=== PATIENT | male | born 1950 | race Caucasian/White ===

== ENCOUNTER 2018-04-26 13:27 | Inpatient (IN) | payer MEDICARE ==
[~2018-04-26] VITALS: Ht 172.7 cm; Wt 78.7 kg
[~2018-04-26 13:27] MED LIST: GLUCOVANCE PO; Z.0.RAMIPRIL5 MG PO
--- NOTE | 2018-04-26 14:46 | Diagnostic Imaging Report ---
PROCEDURE:FOOT COMPLETE BILATERAL INDICATION:Diabetic ulcer COMPARISON:Right foot radiographs from 05/18/2017. MRI of the left foot from 04/09/2012 FINDINGS: 3 views each of the right and left feet (AP, lateral, and oblique). RIGHT FOOT: There has been a transmetatarsal amputation through the right first digit. Amputation of the second digit at the MTP joint. There are new destructive changes of the distal phalanx of the fourth digit. Degenerative changes of the midfoot, unchanged Small calcaneal heel spur and Achilles tendon enthesophyte. LEFT FOOT: There has been amputation of the first digit. No radiographic evidence of osteomyelitis Deformity of the second and third metatarsals is likely related to remote trauma. Mild degenerative changes at the midfoot. Small calcaneal heel spur and Achilles tendon enthesophyte. CONCLUSION: Findings are suspicious for osteomyelitis of the distal phalanx of the right fourth digit. Recommend contrast enhanced MRI of the right forefoot for further evaluation. No radiographic evidence of osteomyelitis in the left foot. Dictated by: Darin Ramirez M.D. on 04/26/2018 at 14:51 Electronically approved by: Darin Ramirez M.D. on 04/26/2018 at 14:51
[2018-04-26 16:53] LABS: BASOPHILS # (AUTO) 0.1 (0.0-0.1); BASOPHILS % 0.8 % (0.0-1.0); EOSINOPHILS # (AUTO) 0.3 (0.0-0.4); EOSINOPHILS % 2.9 % (0.0-6.0); HEMATOCRIT 35.4 % (38.2-49.6); HEMOGLOBIN 12.6 g/dL (14.0-18.0); LYMPHOCYTES # (AUTO) 1.9 (1.0-3.2); LYMPHOCYTES % 20.1 % (18.0-39.1); MEAN CORPUSCULAR HEMOGLOBIN 32.1 pg (28-32); MEAN CORPUSCULAR HGB CONC 35.6 g/dL (31-35); MEAN CORPUSCULAR VOLUME 90.3 fL (81-99); MONOCYTES # (AUTO) 0.8 (0.2-0.8); MONOCYTES % 8.1 % (4.4-11.3); NEUTROPHILS # (AUTO) 6.4 (2.1-6.9); NEUTROPHILS % 67.7 % (38.7-80.0); PLATELET COUNT 264 x10e3/uL (140-360); RED BLOOD COUNT 3.92 x10e6/uL (4.3-5.7); RED CELL DISTRIBUTION WIDTH 11.9 % (11.7-14.4)
[2018-04-26 16:57] LABS: INR 1.02; PROTHROMBIN TIME 12.6 seconds (11.9-14.5)
[2018-04-26] MEDS ORDERED: RAMIPRIL5 MG PO (16:57)
[2018-04-26] MEDS ORDERED: GLYBURIDE-METF1 EAC1 PO (16:57)
[2018-04-26 17:05] LABS: ALBUMIN 3.4 g/dL (3.5-5.0); ALBUMIN/GLOBULIN RATIO 0.8 (0.8-2.0); ANION GAP 11.5 mmol/L (8-16); CALCIUM 9.6 mg/dL (8.4-10.2); CREATININE, SERUM 1.25 mg/dL (0.72-1.25); POTASSIUM 4.5 mmol/L (3.5-5.1)
[2018-04-26] MEDS ORDERED: PIPER-TAZ 3.375 GM 50 ML IV STA (17:36)
[2018-04-26] MEDS ORDERED: VANCOMYCIN 1GM/NS 250 ML 250 ML IV STA (17:36)
[2018-04-26] MEDS ORDERED: ONDANSETRON HCL INJ 2 MG/ML VIAL IV PRN (17:45)
[2018-04-26] MEDS ORDERED: MORPHINE SULFATE 2 MG/ML SYR IV PRN (17:45)
[2018-04-26] MEDS ORDERED: PIPERACILLIN/TAZOBAC 3.375 GM in SODIUM CHLORIDE 0.9% 50ML 50 ML IV SCH (18:00)
[2018-04-26] MEDS: PIPER-TAZ 3.375 GM 50 ML IV SCH (18:10)
[2018-04-26] MEDS: SODIUM CHLORIDE 0.9% 1000ML 1,000 ML IV SCH (18:10)
[2018-04-26] MEDS: VANCOMYCIN 1GM/NS 250 ML 250 ML IV SCH (19:26)
[2018-04-26 22:26] VITALS: BP 134/64
[2018-04-27] VITALS (8 sets, daily range): BP systolic 115–139; BP diastolic 56–64
[2018-04-27] MEDS: PIPER-TAZ 3.375 GM 50 ML IV SCH ×3 (02:02→18:22)
[2018-04-27] MEDS: SODIUM CHLORIDE 0.9% 1000ML 1,000 ML IV SCH (06:32)
[2018-04-27] MEDS: VANCOMYCIN 1GM/NS 250 ML 250 ML IV SCH ×2 (06:32→18:22)
[2018-04-27] MEDS ORDERED: RAMIPRIL 5 MG CAP PO SCH ×2 (09:00→09:30)
[2018-04-27] MEDS ORDERED: HYDRALAZINE HCL 20 MG/ML VIAL IV PRN (09:30)
[2018-04-27] MEDS ORDERED: DEXTROSE 50% SYRINGE 50 ML IV PRN (09:30)
[2018-04-27] MEDS ORDERED: ONDANSETRON HCL INJ 2 MG/ML VIAL IV PRN (09:30)
[2018-04-27] MEDS ORDERED: ACETAMINOPHEN 325 MG TAB PO PRN (09:30)
[2018-04-27] MEDS: ENOXAPARIN SOD INJ 40 MG/0.4 ML SYR SC SCH (09:56)
--- NOTE | 2018-04-27 10:39 | Consultation ---
DATE OF CONSULTATION: April 27, 2018 REASON FOR CONSULTATION: Bilateral foot wounds. HISTORY OF PRESENTING ILLNESS: This is a 67-year-old male with past medical history of type 2 diabetes, peripheral neuropathy, and hypertension. He relates to a wound developing on his right foot approximately 1 month ago and has been applying antibiotic ointment to the lesion. Over the last week, it has become red and inflamed, and presented to the emergency room yesterday. Patient has a history of multiple amputations to bilateral feet. He relates that he takes his diabetic medications, however, his blood sugars run somewhere between 150 and 200 mg/dL on a daily basis. He was admitted and currently on IV antibiotics. He relates no pain to the lesion. He denies nausea, vomiting, fever, chills, chest pain, and shortness of breath. REVIEW OF SYSTEMS: Patient currently denies nausea, vomiting, fever, chills, chest pain, or shortness of breath. PHYSICAL EXAMINATION: GENERAL: Alert and oriented x3, in no apparent distress. VITAL SIGNS: Today, temperature 96.7, heart rate 62, respiratory rate 18, blood pressure 134/63, pulse ox is 98% on room air. PROBLEM FOCUSED LOWER EXTREMITY PHYSICAL EXAMINATION: VASCULAR: Dorsalis pedis and posterior tibial pulses are palpable. Capillary refill time is less than 3 seconds to all remaining digits. Erythema, edema, and warmth are noted to the right fourth digit extending down to the level of the metatarsophalangeal joint. Erythema and edema are noted to the left fourth digit extending down to the level of the distal interphalangeal joint. NEUROLOGICAL: Sensation is absent to light touch bilaterally. MUSCULOSKELETAL: Left hallux amputation. Right hallux and second digit amputation. DERMATOLOGICAL: A deep probing ulceration is noted to the plantar aspect of the right fourth digit with greater than 2 cm periwound erythema, edema. Mild drainage is noted to the fourth digit. A superficial dry eschar is noted to the distal tip of the left fourth digit with periwound erythema and edema less than 2 cm is noted at this time. No other open lesions, ulcerations, or macerations are noted. LABS: White blood cell count is 9.4, hemoglobin 12.6, hematocrit 35.4, platelet count is 264,000. Sodium 137, potassium is 4.5, chloride 107, CO2 23, BUN 18, creatinine 1.25, glucose is 77. X-RAYS: Two views were taken of bilateral feet. The findings are suspicious for osteomyelitis of the distal phalanx of the right fourth digit. ASSESSMENT: 1. Right fourth digit ulcer and cellulitis with probable osteomyelitis. 2. Left fourth digit ulcer. 3. Type 2 diabetes, peripheral neuropathy. PLAN: Patient was seen and evaluated. Discussed condition, x-rays, and treatment options with patient in detail. An MRI has been ordered to confirm osteomyelitis and determine the extent. I will order arterial Dopplers to determine if there is any arterial insufficiency. Will began local wound care with Betadine wet-to-dry bilateral. Discussed with patient need for probable amputation of the left fourth digit. Since patient has a history of hallux and second digit amputation, would recommend a transmetatarsal amputation at this time as the third and fifth digit would likely not be viable in the future. Patient and patient's family relate that they would like to think about it. Will plan for surgery on Sunday, April 29, 2018. Depending on results of MRI and arterial Dopplers, the podiatry service will continue to monitor as an inpatient. Thank you. Job#: [id number]
[2018-04-27] MEDS ORDERED: GADOBENATE DIMEGLUMINE 1 ML IV ONE (10:44)
[2018-04-27] MEDS ORDERED: HYDROCODONE/APAP 5MG-325MG TAB PO PRN (10:45)
[2018-04-27] MEDS: INSULIN LISPRO 100 UNIT/1 ML 3ML VIAL SQ SCH ×3 (12:07→21:00)
[2018-04-27] MEDS: FAMOTIDINE 20 MG TAB PO SCH (17:26)
[2018-04-28] MEDS: PIPER-TAZ 3.375 GM 50 ML IV SCH ×3 (02:00→17:21)
[2018-04-28 04:00] VITALS: BP 121/58
[2018-04-28 05:01] LABS: BASOPHILS # (AUTO) 0.1 (0.0-0.1); BASOPHILS % 1.1 % (0.0-1.0); EOSINOPHILS # (AUTO) 0.2 (0.0-0.4); HEMATOCRIT 29.9 % (38.2-49.6); HEMOGLOBIN 10.6 g/dL (14.0-18.0); LYMPHOCYTES # (AUTO) 1.7 (1.0-3.2); LYMPHOCYTES % 21.7 % (18.0-39.1); MEAN CORPUSCULAR HGB CONC 35.5 g/dL (31-35); MEAN CORPUSCULAR VOLUME 90.3 fL (81-99); MONOCYTES # (AUTO) 0.7 (0.2-0.8); MONOCYTES % 9.3 % (4.4-11.3); NEUTROPHILS # (AUTO) 5.1 (2.1-6.9); NEUTROPHILS % 64.5 % (38.7-80.0); PLATELET COUNT 225 x10e3/uL (140-360); RED BLOOD COUNT 3.31 x10e6/uL (4.3-5.7); RED CELL DISTRIBUTION WIDTH 11.9 % (11.7-14.4)
[2018-04-28 05:17] LABS: ANION GAP 11.4 mmol/L (8-16); CALCIUM 8.9 mg/dL (8.4-10.2); CREATININE, SERUM 1.34 mg/dL (0.72-1.25); MAGNESIUM 1.7 MG/DL (1.3-2.1); POTASSIUM 4.4 mmol/L (3.5-5.1)
[2018-04-28] MEDS: VANCOMYCIN 1GM/NS 250 ML 250 ML IV SCH ×2 (06:07→17:21)
[2018-04-28 07:54] VITALS: BP 129/60
[2018-04-28] MEDS ORDERED: SODIUM CHLORIDE 0.9% 1000ML 1,000 ML IV ONE (08:15)
[2018-04-28] MEDS: FAMOTIDINE 20 MG TAB PO SCH ×2 (08:45→16:33)
[2018-04-28] MEDS ORDERED: LACTULOSE SYRUP 20 GM/30 ML UDC PO PRN (08:45)
[2018-04-28] MEDS: INSULIN LISPRO 100 UNIT/1 ML 3ML VIAL SQ SCH ×4 (08:47→21:00)
[2018-04-28 09:00] VITALS: BP 129/60
[2018-04-28] MEDS ORDERED: POLYETHYLENE GLYCOL 3350 17 GM PACK PO PRN (09:00)
[2018-04-28] MEDS: RAMIPRIL 5 MG CAP PO SCH (09:08)
[2018-04-28] MEDS: ENOXAPARIN SOD INJ 40 MG/0.4 ML SYR SC SCH (09:08)
[2018-04-28] MEDS: DOCUSATE SODIUM 100 MG CAP PO SCH ×2 (09:13→16:35)
[2018-04-28 12:00] VITALS: BP 142/66
--- NOTE | 2018-04-28 14:52 | Progress Note ---
DATE: April 28, 2018 SUBJECTIVE: This is a 67-year-old male with past medical history of type 2 diabetes, peripheral neuropathy and hypertension who is seen resting and in no apparent distress at bedside this morning. He denies any acute issues overnight. Denies any nausea, vomiting, fever, chills, chest pain or shortness of breath. OBJECTIVE GENERAL: Alert and oriented x3, in no apparent distress. VITAL SIGNS: Today, temperature 96.1, heart rate 61, respiratory rate 18, blood pressure 129/60, pulse oximetry 96% on room air. PROBLEM FOCUS, LOWER EXTREMITY: Vascular: Dorsalis pedis and posterior tibial pulses are palpable. Capillary refill time is less than 3 seconds. All remaining digits, erythema, edema and warmth are noted to the right 4th digit extending to the level of the metatarsophalangeal joint. Erythema and edema noted to the left 4th digit extending to the distal interphalangeal joint. Neurologic: Sensation is absent to light touch bilaterally. Musculoskeletal: Left hallux amputation, right hallux and 2nd digit amputation. Dermatological: Deep probing ulcerations noted to the plantar aspect of the right 4th digit with greater than 2 cm of periwound erythema, edema, warmth. There is mild drainage noted. Superficial ulceration is noted to the left 4th digit, which shows improving local acute signs of infection. LABORATORY DATA: Today, white blood count is 7.9, hemoglobin 10.6, hematocrit 29.9, platelet count 225,000. Sodium 140, potassium 4.4, chloride 110, CO2 of 23, BUN 15, creatinine 1.3. Glucose 278. Hemoglobin A1c 7.9. ASSESSMENT 1. Right 4th digit ulcer with cellulitis and osteomyelitis, left 4th digit ulcer. 2. Type 2 diabetes. 3. Peripheral neuropathy. PLAN: The patient was seen and evaluated. Discussed condition, x-rays, and treatment options with the patient in detail. An MRI was performed yesterday but the report is not yet available. Arterial Dopplers are being performed at the bedside when the patient was seen this morning. Based on results of MRI and arterial Doppler, will plan for transmetatarsal amputation tomorrow, 04/29/2018, of the right foot. Long-term plan afterwards will include possible admission to long-term acute care facility postoperatively for IV antibiotics and local wound care and patient monitoring. The podiatry service will continue to monitor as an inpatient. Job#: [id number] GH
[2018-04-28 16:01] VITALS: BP 133/63
[2018-04-28 20:00] VITALS: BP 134/63
--- NOTE | 2018-04-28 23:52 | Consultation ---
DATE OF CONSULTATION: REASON FOR CONSULTATION: Bilateral foot infection. HISTORY OF PRESENT ILLNESS: This is a 67-year-old gentleman, history of diabetes mellitus, history of neuropathy, hypertension, disease, comes in with bilateral foot infection for last month or so. The patient has been having problem with his feet for last month. PHYSICAL EXAMINATION: DICTATION DISCONTINUED (03:13) Job#: [id number] CQ
[2018-04-29] VITALS (9 sets, daily range): BP systolic 118–141; BP diastolic 58–71
[2018-04-29] MEDS: PIPER-TAZ 3.375 GM 50 ML IV SCH ×3 (02:00→17:00)
[2018-04-29 05:02] LABS: BASOPHILS # (AUTO) 0.1 (0.0-0.1); BASOPHILS % 1.4 % (0.0-1.0); EOSINOPHILS # (AUTO) 0.3 (0.0-0.4); EOSINOPHILS % 4.8 % (0.0-6.0); HEMATOCRIT 29.7 % (38.2-49.6); HEMOGLOBIN 10.3 g/dL (14.0-18.0); LYMPHOCYTES # (AUTO) 1.6 (1.0-3.2); LYMPHOCYTES % 29.1 % (18.0-39.1); MEAN CORPUSCULAR HEMOGLOBIN 31.8 pg (28-32); MEAN CORPUSCULAR HGB CONC 34.7 g/dL (31-35); MEAN CORPUSCULAR VOLUME 91.7 fL (81-99); MONOCYTES # (AUTO) 0.5 (0.2-0.8); MONOCYTES % 8.9 % (4.4-11.3); NEUTROPHILS # (AUTO) 3.1 (2.1-6.9); NEUTROPHILS % 55.4 % (38.7-80.0); PLATELET COUNT 215 x10e3/uL (140-360); RED BLOOD COUNT 3.24 x10e6/uL (4.3-5.7); RED CELL DISTRIBUTION WIDTH 11.9 % (11.7-14.4)
[2018-04-29 05:22] LABS: ANION GAP 11.2 mmol/L (8-16); CALCIUM 8.9 mg/dL (8.4-10.2); CREATININE, SERUM 1.41 mg/dL (0.72-1.25); MAGNESIUM 1.7 MG/DL (1.3-2.1); POTASSIUM 4.2 mmol/L (3.5-5.1)
[2018-04-29] MEDS: VANCOMYCIN 1GM/NS 250 ML 250 ML IV SCH ×2 (06:26→19:07)
[2018-04-29] MEDS: INSULIN LISPRO 100 UNIT/1 ML 3ML VIAL SQ SCH ×4 (07:30→21:10)
--- NOTE | 2018-04-29 08:10 | Diagnostic Imaging Report ---
TECHNIQUE: Magnetic resonance imaging of the RIGHT foot was performed without and with injected contrast. 15 mL of MultiHance. HISTORY: Pain, evaluate for osteomyelitis fourth toe COMPARISON: None available. DISCUSSION: Amputation across the first metatarsal and second metatarsal phalangeal joint. Post traumatic deformity/infectious deformity of the second metatarsal and possibly about the third MTP joint. T1 replacement with edema involving the middle and distal phalanx of the fourth toe and bone marrow edema proximal phalanx third toe with possible T1 replacement. Soft tissue ulceration of the fourth toe with plantar phlegmon adjacent to the distal phalanx postcontrast image 26. Arthrosis of the tarsal metatarsal joints. IMPRESSION: Osteomyelitis of the fourth toe mid and distal phalanx and possible osteomyelitis proximal phalanx. Signed by: Dr. Brian Maradiaga M.D. on 04/29/2018 8:07 AM
[2018-04-29] MEDS: ENOXAPARIN SOD INJ 40 MG/0.4 ML SYR SC SCH (09:00)
[2018-04-29] MEDS: RAMIPRIL 5 MG CAP PO SCH (10:04)
[2018-04-29] MEDS: FAMOTIDINE 20 MG TAB PO SCH ×2 (10:04→17:00)
[2018-04-29] MEDS: SODIUM CHLORIDE 0.9% 1000ML 1,000 ML IV SCH (10:04)
[2018-04-29] MEDS: DOCUSATE SODIUM 100 MG CAP PO SCH ×2 (10:04→17:00)
--- NOTE | 2018-04-29 12:35 | Diagnostic Imaging Report ---
PROCEDURE: A single AP view of the chest. COMPARISON: Chest radiograph 08/20/17. INDICATIONS: STATUS POST PICC LINE PLACEMENT FINDINGS: Lines/tubes: Right sided PICC terminating in the expected region of the upper SVC near the brachiocephalic confluence. Lungs: The lungs are well inflated. There is no evidence of pneumonia or pulmonary edema. Pleura: There is no pleural effusion or pneumothorax. Heart and mediastinum: The cardiomediastinal silhouette is unremarkable. Bones: No acute bony abnormality. IMPRESSION: Right sided PICC terminating in the expected region of the upper SVC. No evidence of pneumothorax. Clear lungs. Dictated by: KELECHI RIVERA M.D. on 04/29/2018 at 12:41 Electronically approved by: KELECHI RIVERA M.D. on 04/29/2018 at 12:41
--- NOTE | 2018-04-29 14:34 | Progress Note ---
DATE: April 29, 2018 SUBJECTIVE: A 67-year-old male with past medical history of type 2 diabetes, peripheral neuropathy and hypertension who is seen resting comfortably at bedside this morning. He denies any acute issues overnight. Denies any nausea, vomiting, fevers, chills, chest pain and no shortness of breath. OBJECTIVE GENERAL: Alert and oriented times three in no apparent distress. VITAL SIGNS: Today temperature is 96.9, heart rate is 52, respiratory rate 18, blood pressure 141/67, pulse ox is 99% on room air. PROBLEM FOCUS, LOWER EXTREMITY PHYSICAL EXAM: VASCULAR: Dorsalis pedis and posterior tibial pulses are palpable. Capillary refill time less than 3 seconds to all remaining digits. Erythema, edema and warmth continues to be noted to the right 4th digit extending to the level of the metatarsophalangeal joint. Erythema and edema noted to the left 4th digit extending to the interphalangeal joint. NEUROLOGIC: Sensation is absent to light touch bilateral. MUSCULOSKELETAL: Left hallux amputation and a right hallux and 2nd digit amputation. DERMATOLOGIC: Deep probing ulceration noted to the plantar aspect of the right 4th digit. Greater than 2 cm appearing with erythema, edema and warmth. Mild drainage is present. Superficial ulceration to the left 4th digit which shows improving signs of infection. LABS: White blood cell count 5.6, hemoglobin 10.3, hematocrit 29.7, platelet count 215. Sodium 138, potassium 4.2, chloride 109, CO2 22, BUN 15, creatinine 1.4, glucose 119. IMAGING: MRI reveals osteomyelitis of the 4th digit distal phalanx and possible osteomyelitis of the proximal phalanx. ASSESSMENT 1. Right 4th digit ulcer with osteomyelitis. 2. Left 4th digit ulcer. 3. Type 2 diabetes and peripheral neuropathy. PLAN: Patient was seen and evaluated. Discussed condition, x-rays and treatment options with patient in detail. Patient's arterial Dopplers have been performed but results are not available as of yet. Patient was scheduled for a transmetatarsal amputation today but was called by the OR saying there would not be availability today and the case had to be moved to tomorrow morning, 04/30/2018, for the right transmetatarsal amputation and left foot wound debridement. The plan will be for long-term IV antibiotics, wound care and monitoring at a long-term acute care facility postoperatively. The podiatry service will continue to monitor as an inpatient. Job#: [id number] JACKI
--- NOTE | 2018-04-29 17:15 | Consultation ---
DATE OF CONSULTATION: April 29, 2018 REASON FOR CONSULTATION: Osteomyelitis of bilateral lower extremities. HISTORY OF PRESENT ILLNESS: Mr. Rodriguez is a very pleasant 67-year-old male with history of diabetes mellitus, history of severe peripheral neuropathy, multiple infections of bilateral feet, amputation of several toes on bilateral feet. For the last month or so, he has been having problem with wound on his right foot as well as some infection in his left foot. The patient apparently had diabetes. He has not seen a physician for last month. He finally came to the hospital where he is being admitted and evaluated. The patient was diagnosed with right foot digital ulcer, osteomyelitis, and left foot 4th digit ulcer and osteomyelitis. There was redness on both feet. Patient is being admitted. Infectious disease was consulted. His is at the bedside. PAST MEDICAL HISTORY: Diabetes mellitus, neuropathy, osteomyelitis, hypertension. PAST SURGICAL HISTORY: Amputation of several toes. ALLERGIES: NKA. SOCIAL HISTORY: There is no smoking, drug abuse, or alcohol abuse. FAMILY HISTORY: Hypertension and diabetes. MEDICATION: He is on Altace, Colace, and Pepcid. He is currently on Lovenox, vancomycin, and Zosyn. REVIEW OF SYSTEMS HEENT: Negative. PULMONARY: Negative. CARDIAC: Negative. : Negative. SKIN. No rash. Fourteen points all reviewed with the patient, all negative at the present time. PHYSICAL EXAMINATION GENERAL: He is currently alert, oriented, does not seem to be in acute distress. VITAL SIGNS: Stable, currently afebrile. HEENT: Normocephalic. NECK: Supple. No JVD. No lymphadenopathy. No thyromegaly. CHEST: Clear bilateral. HEART: S1 and S2 without murmur. ABDOMEN: Soft. Bowel sounds present. No tenderness. EXTREMITIES: He has erythema and edema in the distal third of his feet bilateral, mainly on the right. On the left 4th digit, there is ulcer and edema. IMPRESSION AND PLAN: Osteomyelitis. I think it is on both feet. We will put him on vancomycin and Zosyn. Agree with podiatry. Will need vascular workup. Amputation is unavoidable, but he will need to be on IV antibiotic for 4-6 weeks postoperatively. Continue vancomycin and Zosyn. Hopefully, we can get culture intraoperative and we will follow. Obtain a sed rate, C-reactive protein, weekly CBC, weekly chem panel, and vancomycin trough. Modify the antibiotic after availability of the cultures. Job#: [id number] CESAR
[2018-04-29] MEDS ORDERED: MORPHINE SULFATE INJ 4 MG/ML INJ IV PRN (21:15)
[2018-04-30] VITALS (7 sets, daily range): BP systolic 131–147; BP diastolic 67–74
[2018-04-30] MEDS: PIPER-TAZ 3.375 GM 50 ML IV SCH ×3 (02:09→16:43)
[2018-04-30] MEDS: SODIUM CHLORIDE 0.9% 1000ML 1,000 ML IV SCH ×2 (05:00→08:42)
[2018-04-30] MEDS: VANCOMYCIN 1GM/NS 250 ML 250 ML IV SCH ×2 (05:27→17:30)
[2018-04-30 05:52] LABS: BASOPHILS # (AUTO) 0.1 (0.0-0.1); BASOPHILS % 1.4 % (0.0-1.0); EOSINOPHILS # (AUTO) 0.2 (0.0-0.4); EOSINOPHILS % 4.1 % (0.0-6.0); HEMATOCRIT 29.7 % (38.2-49.6); HEMOGLOBIN 10.3 g/dL (14.0-18.0); LYMPHOCYTES # (AUTO) 1.6 (1.0-3.2); MEAN CORPUSCULAR HEMOGLOBIN 31.8 pg (28-32); MEAN CORPUSCULAR HGB CONC 34.7 g/dL (31-35); MEAN CORPUSCULAR VOLUME 91.7 fL (81-99); MONOCYTES # (AUTO) 0.6 (0.2-0.8); MONOCYTES % 9.7 % (4.4-11.3); NEUTROPHILS # (AUTO) 3.3 (2.1-6.9); NEUTROPHILS % 56.5 % (38.7-80.0); PLATELET COUNT 216 x10e3/uL (140-360); RED BLOOD COUNT 3.24 x10e6/uL (4.3-5.7); RED CELL DISTRIBUTION WIDTH 11.7 % (11.7-14.4)
[2018-04-30] MEDS ORDERED: DEXAMETHASONE SOD PHOS INJ 4 MG/ML VIAL ONE ×2 (05:55→05:57)
[2018-04-30] MEDS ORDERED: BACITRACIN 50,000 UNIT VIAL ONE (05:56)
[2018-04-30] MEDS ORDERED: BUPIVACAINE HCL 0.5% INJ 30 ML VIAL INJ ONE (05:56)
[2018-04-30 06:05] LABS: ANION GAP 12.2 mmol/L (8-16); CREATININE, SERUM 1.51 mg/dL (0.72-1.25); MAGNESIUM 1.6 MG/DL (1.3-2.1); POTASSIUM 4.2 mmol/L (3.5-5.1)
[2018-04-30] MEDS: INSULIN LISPRO 100 UNIT/1 ML 3ML VIAL SQ SCH ×4 (08:30→21:18)
[2018-04-30] MEDS: FAMOTIDINE 20 MG TAB PO SCH ×2 (08:42→16:43)
[2018-04-30] MEDS: ENOXAPARIN SOD INJ 40 MG/0.4 ML SYR SC SCH (08:42)
[2018-04-30] MEDS: DOCUSATE SODIUM 100 MG CAP PO SCH ×2 (08:42→16:43)
--- NOTE | 2018-04-30 09:17 | Operative Report ---
DATE OF PROCEDURE: April 30, 2018 PREOPERATIVE DIAGNOSES 1. Right foot osteomyelitis. 2. Left foot neuropathic ulcer. POSTOPERATIVE DIAGNOSES 1. Right foot osteomyelitis. 2. Left foot neuropathic ulcer. PLANNED PROCEDURES 1. Right foot transmetatarsal amputation. 2. Left foot subcutaneous wound debridement. SCIENCE AND OPERATIONS OFFICER: RADHA Valles ANESTHESIA: General with a postoperative block consisting of 15 mL of 0.5% Marcaine plain. ESTIMATED BLOOD LOSS: Less than 10 mL. HEMOSTASIS: Esmarch tourniquet applied to the right foot for approximately 30 minutes. PATHOLOGY: Right forefoot sent for gross specimen and culture. MATERIALS: 3-0 nylon. PROCEDURE NOTE: Patient was seen in the preoperative waiting room where the correct procedure and site was identified. The patient was brought to the operating room and placed on the operating table in the supine position. General anesthesia was initiated at this time. Bilateral feet were then scrubbed, prepped and draped in the usual aseptic manner. An Esmarch tourniquet was applied to the patient's right lower extremity for approximately 30 minutes. Attention was directed to the distal aspect of the patient's right foot where a deep probing ulceration is noted to the distal aspect of the 4th digit with moderate purulent drainage and probed to bone. Preoperative MRI confirmed osteomyelitis to the level of the proximal phalanx since the patient had previously had a history of partial 1st ray amputation and 2nd digit amputation. The decision was made to proceed with a transmetatarsal amputation. Utilizing a #15 blade, 2 large converging semi-elliptical incisions were made at level of the 5th metatarsophalangeal joint extending to the level of the 2nd metatarsophalangeal joint. The incision was carried through subcutaneous tissues them from deeper underlying structures. All vital neurovascular structures were identified and retracted medial and laterally, and all bleeders were cauterized or ligated as deemed necessary. At this time, the digits were disarticulated from the metatarsophalangeal joints 3, 4 and 5. The distal forefoot was then disarticulated and passed off to the back table for gross specimen. Next, a utilizing intraoperative fluoroscopy to determine length of parabola from previous surgery, 4 osteotomies were performed at the level of the distal metatarsal shaft of 2-5 angled dorsal distal to plantar proximal, and on the 5th metatarsal angled slightly medial. The metatarsal heads were all resected and passed off to the back table. The wound was then flushed with copious amounts of sterile saline mixed with Bacitracin. Next, all wound edges were prepped for closure by removing all dog ears and debulking fat. The incision site was reapproximated with simple interrupted sutures with 3-0 nylon. The incision site was then dressed with Betadine-soaked Adaptic, 4 x 4s, Kerlix, and Patrick wrap. Attention was then directed to the left foot where a superficial ulceration with hyperkeratotic borders was noted to the distal tip of the patient's left 4th digit. Utilizing a #15 blade, the wound was sharply debrided to granulation tissue excisionally. The wound was then flushed with copious amounts of sterile saline and dressed with Adaptic soaked, Betadine 4 x 4s, Kerlix, and an Patrick wrap. Patient tolerated the procedure and anesthesia well. Patient was transferred to the postoperative recovery unit with vital signs stable and vascular status intact. Patient was monitored there for a short period time before being readmitted to the floor for postoperative monitoring, pain control and IV antibiotics. The patient is to remain 100% nonweightbearing to the right lower extremity and partial weightbearing to the left lower extremity in a postop shoe. The podiatry service will continue to monitor as an inpatient. Long-term plan will include IV antibiotics and being transferred to a nursing facility. The podiatry service will continue to monitor as an inpatient. Job#: [id number] [facility]
[2018-04-30] MEDS: RAMIPRIL 5 MG CAP PO SCH (09:35)
[2018-04-30] MEDS ORDERED: DESFLURANE 240 ML BTL INH ONE (18:24)
[2018-04-30] MEDS ORDERED: PROPOFOL IV EMULSION 10 MG/ML 20 ML VIAL ONE (18:24)
[2018-04-30] MEDS ORDERED: ONDANSETRON HCL INJ 2 MG/ML VIAL ONE (18:24)
[2018-04-30] MEDS ORDERED: LIDOCAINE HCL 2% LOCAL INJ 5 ML SDV VIAL INJ ONE (18:24)
[2018-04-30] MEDS ORDERED: FENTANYL CITRATE/PF 100MCG/2 ML INJ ONE (20:11)
[2018-04-30] MEDS ORDERED: MIDAZOLAM HCL 2 MG/2 ML VIAL ONE (20:11)
[2018-05-01] VITALS (9 sets, daily range): BP systolic 135–170; BP diastolic 61–76
[2018-05-01] MEDS: PIPER-TAZ 3.375 GM 50 ML IV SCH ×3 (02:45→17:26)
[2018-05-01] MEDS: VANCOMYCIN 1GM/NS 250 ML 250 ML IV SCH ×2 (05:53→17:26)
[2018-05-01 06:05] LABS: BASOPHILS % 0.4 % (0.0-1.0); EOSINOPHILS % 0.3 % (0.0-6.0); HEMATOCRIT 28.2 % (38.2-49.6); HEMOGLOBIN 10.2 g/dL (14.0-18.0); LYMPHOCYTES # (AUTO) 1.2 (1.0-3.2); LYMPHOCYTES % 12.8 % (18.0-39.1); MEAN CORPUSCULAR HEMOGLOBIN 32.3 pg (28-32); MEAN CORPUSCULAR HGB CONC 36.2 g/dL (31-35); MEAN CORPUSCULAR VOLUME 89.2 fL (81-99); MONOCYTES # (AUTO) 0.6 (0.2-0.8); MONOCYTES % 6.9 % (4.4-11.3); NEUTROPHILS # (AUTO) 7.1 (2.1-6.9); NEUTROPHILS % 79.4 % (38.7-80.0); PLATELET COUNT 229 x10e3/uL (140-360); RED BLOOD COUNT 3.16 x10e6/uL (4.3-5.7); RED CELL DISTRIBUTION WIDTH 11.6 % (11.7-14.4)
[2018-05-01 06:25] LABS: ANION GAP 10.1 mmol/L (8-16); CALCIUM 8.9 mg/dL (8.4-10.2); CREATININE, SERUM 1.42 mg/dL (0.72-1.25); MAGNESIUM 1.7 MG/DL (1.3-2.1); POTASSIUM 4.1 mmol/L (3.5-5.1)
[2018-05-01] MEDS: INSULIN LISPRO 100 UNIT/1 ML 3ML VIAL SQ SCH ×4 (07:30→21:19)
[2018-05-01] MEDS: FAMOTIDINE 20 MG TAB PO SCH ×2 (07:30→17:25)
--- NOTE | 2018-05-01 08:26 | Progress Note ---
DATE: May 01, 2018 SUBJECTIVE: This is a 67-year-old male with a past medical history of type 2 diabetes, peripheral neuropathy, hypertension, who is postoperative day 1 of right transmetatarsal amputation of the left foot wound debridement. He is seen at the bedside this morning and resting comfortably. Denies any acute issues overnight. Denies nausea, vomiting, fever, chills, chest pain, or shortness of breath. No pain to bilateral lower extremities. OBJECTIVE GENERAL: Alert and oriented times 3 in no apparent distress. VITAL SIGNS: Today, temperature 97.2, heart rate 59, respiratory rate 18, blood pressure 147/73, pulse ox is 98% on room air. LOWER EXTREMITY PHYSICAL EXAMINATION: The dressings are clean, dry and intact. No evidence of strike through. Capillary refill time is within normal limits to the digits of the left lower extremity that are exposed. Dressing was not changed at this time. Right transmetatarsal amputation and left hallux amputation. LABS: White blood cell count is 8.9, hemoglobin 10.2, hematocrit 28.2, and platelet count 229,000. Sodium 136, potassium 4.1, chloride 108, BUN 20, creatinine 1.42, glucose 222. Hemoglobin A1c is 7.9. ASSESSMENT 1. Right 4th digit ulcer with osteomyelitis. 2. Postoperative day 1 right transmetatarsal amputation of the left 4th digit ulcer, status post wound debridement. 3. Type 2 diabetes. 3. Peripheral neuropathy. The patient was seen, evaluated and discussed condition and treatment options with the patient in detail. The patient's arterial Dopplers reveal moderate stenosis to the right posterior tibial artery and stenosis to the left femoral artery. Recommend consultation for vascular for workup and possible revascularization procedure. Dressings were not changed today as the patient is postoperative day 1. Will plan for bilateral dressing change tomorrow. Based on recommendations from cardiology and vascular, will determine discharge to SNF or LTAC depending on the patient's availability and insurance. The podiatry service will continue to monitor as an inpatient. Job#: [id number] JAYLEEN
[2018-05-01] MEDS: RAMIPRIL 5 MG CAP PO SCH (08:52)
[2018-05-01] MEDS: DOCUSATE SODIUM 100 MG CAP PO SCH ×2 (08:52→17:25)
[2018-05-01] MEDS: ENOXAPARIN SOD INJ 40 MG/0.4 ML SYR SC SCH (08:53)
[2018-05-01] MEDS ORDERED: LIDOCAINE HCL 2% LOCAL 20 ML VIAL ONE (12:09)
[2018-05-01] MEDS ORDERED: IOPAMIDOL 300MG/ML 100 ML INFUS..BTL IV ONE (12:10)
[2018-05-01] MEDS ORDERED: HEPARIN SOD/SOD CHLORIDE 1,000 ML ONE (12:10)
[2018-05-01] MEDS ORDERED: MIDAZOLAM HCL 2 MG/2 ML VIAL ONE (12:56)
[2018-05-01] MEDS ORDERED: FENTANYL CITRATE/PF 100MCG/2 ML INJ ONE (12:57)
[2018-05-01] MEDS ORDERED: HEPARIN SOD (PORCINE) 1000 UNIT/ML 30ML ONE (13:15)
--- NOTE | 2018-05-01 15:38 | Diagnostic Imaging Report ---
PROCEDURE: ANGIOGRAM EXT. BILATERAL COMPARISON: None. INDICATIONS: Osteomyelitis with amputations of portions of both feet. Medication: Versed 1 mg IV, fentanyl 50 g IV. Patient was continuously monitored during the procedure and following the procedure. . Fluoroscopy time: 6.0 minutes Dose area product: 3184.3 [id number] Technique: After informed consent was obtained, the patient was placed on the angio table in a supine position. The left groin was prepped and draped in a sterile fashion. Local anesthesia with 1% Xylocaine. Ultrasound was utilized for guidance to puncture the left common femoral artery with a 21 gauge skinny needle. A 0.018 inch wire was then placed and a micropuncture sheath placed over the wire. A 0.035 inch J-wire was advanced into the abdominal aorta and a 6 Cypriot introduction sheath was placed over the J-wire. A 5 Cypriot Omni flush catheter was placed into the distal aorta and a flush aortogram of the distal aorta and pelvic vessels accomplished. Utilizing a Glidewire the catheter was redirected across the bifurcation and was advanced into the right common femoral artery. Lower extremity runoff was performed. The catheter was then retracted and lower extremity runoff on the left side performed through the introduction sheath. Sheath was removed and hemostasis obtained with manual compression. The catheter and sheath were removed and hemostasis was obtained with manual compression. The patient tolerated the procedure well without evidence of immediate complication. FINDINGS: The abdominal aorta and pelvic vessels are within normal limits without evidence of significant stenosis or plaque. Right lower extremity: There are several small plaques involving the superficial femoral artery not significant in nature. Popliteal artery is patent. There is a patent 3 vessel trifurcation. Mild stenosis of the proximal anterior tibial artery is noted. 3 vessels extend to the foot where there is a short segment high-grade stenosis of the distal anterior tibial artery proximal to the ankle joint. Peroneal artery and posterior tibial artery are intact and there is a good plantar arch noted. Left lower extremity: Mild plaque of the distal SFA is not significant. The popliteal artery is patent. There is a patent three-vessel runoff. Eccentric plaques are present just pass the origin of the anterior tibial and peroneal artery. These result in a less than 50% stenosis. Several focal areas of stenosis in the proximal anterior tibial artery is present and there is a high-grade stenosis of the distal anterior tibial artery. There is a three-vessel runoff with the peroneal contributing to the posterior tibial and anterior tibial artery. Normal plantar arch is present. CONCLUSION: 1. Findings outlined as above. 2. No focal critical stenosis amenable to angioplasty at this time is noted. 3. No intervention was accomplished. 4. Three-vessel runoff below the knee to the feet bilaterally. Keanu Leblanc D.O. Dictated by: Keanu Leblanc D.O. on 05/01/2018 at 15:43 Electronically approved by: Keanu Leblanc D.O. on 05/01/2018 at 15:43
[2018-05-01] MEDS: SODIUM CHLORIDE 0.9% 1000ML 1,000 ML IV SCH (21:18)
[2018-05-02] VITALS (8 sets, daily range): BP systolic 131–162; BP diastolic 47–75
[2018-05-02] MEDS: PIPER-TAZ 3.375 GM 50 ML IV SCH ×3 (02:28→17:28)
[2018-05-02 05:11] LABS: BASOPHILS # (AUTO) 0.1 (0.0-0.1); BASOPHILS % 0.9 % (0.0-1.0); EOSINOPHILS # (AUTO) 0.2 (0.0-0.4); EOSINOPHILS % 2.9 % (0.0-6.0); HEMATOCRIT 27.9 % (38.2-49.6); HEMOGLOBIN 9.9 g/dL (14.0-18.0); LYMPHOCYTES # (AUTO) 2.1 (1.0-3.2); LYMPHOCYTES % 28.3 % (18.0-39.1); MEAN CORPUSCULAR HGB CONC 35.5 g/dL (31-35); MEAN CORPUSCULAR VOLUME 90.3 fL (81-99); MONOCYTES # (AUTO) 0.6 (0.2-0.8); MONOCYTES % 7.6 % (4.4-11.3); NEUTROPHILS # (AUTO) 4.5 (2.1-6.9); NEUTROPHILS % 59.9 % (38.7-80.0); PLATELET COUNT 211 x10e3/uL (140-360); RED BLOOD COUNT 3.09 x10e6/uL (4.3-5.7); RED CELL DISTRIBUTION WIDTH 12.1 % (11.7-14.4)
[2018-05-02 05:28] LABS: ANION GAP 11.1 mmol/L (8-16); CALCIUM 8.7 mg/dL (8.4-10.2); CREATININE, SERUM 1.26 mg/dL (0.72-1.25); MAGNESIUM 1.6 MG/DL (1.3-2.1); POTASSIUM 4.1 mmol/L (3.5-5.1)
[2018-05-02] MEDS: INSULIN LISPRO 100 UNIT/1 ML 3ML VIAL SQ SCH ×4 (07:30→21:28)
[2018-05-02] MEDS ORDERED: VANCOMYCIN 750MG/NS 150ML IVPB 150 ML IV SCH (07:45)
[2018-05-02] MEDS: DOCUSATE SODIUM 100 MG CAP PO SCH ×2 (08:27→17:27)
[2018-05-02] MEDS: ENOXAPARIN SOD INJ 40 MG/0.4 ML SYR SC SCH (08:27)
[2018-05-02] MEDS: RAMIPRIL 5 MG CAP PO SCH (08:27)
[2018-05-02] MEDS: FAMOTIDINE 20 MG TAB PO SCH ×2 (08:27→17:27)
[2018-05-02] MEDS: VANCOMYCIN 750MG/NS 150ML IVPB 150 ML IV SCH ×2 (08:28→21:27)
--- NOTE | 2018-05-02 08:45 | Progress Note ---
DATE: May 02, 2018 SUBJECTIVE: This is a 67-year-old male with past medical history of type 2 diabetes, peripheral neuropathy, hypertension, postoperative day 2, right transmetatarsal amputation and a left foot wound debridement. Seen at bedside this morning, resting comfortably. Denies any acute issues overnight. Denies nausea, vomiting, fever, chills, chest pain, or shortness of breath. No pain to bilateral lower extremities. OBJECTIVE GENERAL: Alert and oriented times 3 in no apparent distress. VITAL SIGNS: Today, temperature 97.5, heart rate 55, respiratory rate 18, blood pressure 139/70, pulse ox is 97% on room air. LOWER EXTREMITY PHYSICAL EXAMINATION: Vascular: Dorsalis pedis pulse is palpable at 2/4, posterior tibial pulse is faintly palpable. Left 4th digit erythema and edema is improving. Capillary refill time to distal stump of the right foot is 3 to 4 seconds. Minimal edema, minimal erythema, negative ecchymosis. Minimal strikethrough is noted to the bandage. NEUROLOGICAL: Sensation is absent to bilateral lower extremities. MUSCULOSKELETAL: Right transmetatarsal amputation, left hallux amputation. DERMATOLOGICAL: All sutures are in place and intact. Minimal strikethrough is noted to the bandage. Negative erythema, minimal edema, negative ecchymosis. No local acute signs of infection. No drainage. Slight maceration is noted to the central aspect of the incision site. The left 4th digit has superficial ulceration to the distal tip approximately 0.5 cm x 1.5 cm, 100% granular with improving local acute signs of infection. LABS: White blood cell count is 7.5, hemoglobin 9.9, hematocrit 27.9, and platelet count 211,000. Sodium 140, potassium 4.1, chloride 110, BUN 19, creatinine 1.26, and glucose 118. PLAN: The patient was seen and evaluated. Discussed condition and treatment options with the patient in detail. Dressing was changed today with Betadine wet-to-dry bilateral. Patient underwent interventional radiology with angiogram yesterday which showed occlusions in bilateral lower extremities. There was a patent 3-vessel runoff with no focal critical stenosis amenable to angioplasty at this time. The patient is stable for discharge to alf facility or long-term acute care per podiatry standpoint. Continue 100% nonweightbearing to the right lower extremity, maybe partial weightbearing to the left lower extremity in a postop shoe. The podiatry service will continue to monitor as an inpatient. Job#: [id number] CF
[2018-05-02] MEDS ORDERED: POLYETHYLENE GLYCOL 3350 17 GM PACK PO PRN (10:00)
[2018-05-02] MEDS: SODIUM CHLORIDE 0.9% 1000ML 1,000 ML IV SCH (17:28)
[2018-05-03] VITALS (7 sets, daily range): BP systolic 125–149; BP diastolic 66–75
[2018-05-03] MEDS: PIPER-TAZ 3.375 GM 50 ML IV SCH ×2 (02:16→10:00)
[2018-05-03] MEDS: SODIUM CHLORIDE 0.9% 1000ML 1,000 ML IV SCH ×2 (02:50→13:00)
[2018-05-03 04:35] LABS: BASOPHILS # (AUTO) 0.1 (0.0-0.1); EOSINOPHILS # (AUTO) 0.3 (0.0-0.4); EOSINOPHILS % 3.7 % (0.0-6.0); HEMATOCRIT 28.9 % (38.2-49.6); HEMOGLOBIN 10.3 g/dL (14.0-18.0); LYMPHOCYTES # (AUTO) 1.9 (1.0-3.2); LYMPHOCYTES % 27.2 % (18.0-39.1); MEAN CORPUSCULAR HEMOGLOBIN 31.9 pg (28-32); MEAN CORPUSCULAR HGB CONC 35.6 g/dL (31-35); MEAN CORPUSCULAR VOLUME 89.5 fL (81-99); MONOCYTES # (AUTO) 0.6 (0.2-0.8); MONOCYTES % 8.7 % (4.4-11.3); NEUTROPHILS % 59.1 % (38.7-80.0); PLATELET COUNT 211 x10e3/uL (140-360); RED BLOOD COUNT 3.23 x10e6/uL (4.3-5.7)
[2018-05-03 05:13] LABS: ANION GAP 10.8 mmol/L (8-16); CALCIUM 9.1 mg/dL (8.4-10.2); CREATININE, SERUM 1.28 mg/dL (0.72-1.25); MAGNESIUM 1.5 MG/DL (1.3-2.1); POTASSIUM 3.8 mmol/L (3.5-5.1)
[2018-05-03] MEDS: INSULIN LISPRO 100 UNIT/1 ML 3ML VIAL SQ SCH ×4 (07:30→20:59)
[2018-05-03] MEDS: ENOXAPARIN SOD INJ 40 MG/0.4 ML SYR SC SCH (09:00)
[2018-05-03] MEDS: RAMIPRIL 5 MG CAP PO SCH (09:00)
[2018-05-03] MEDS: DOCUSATE SODIUM 100 MG CAP PO SCH ×2 (09:00→17:00)
--- NOTE | 2018-05-03 09:56 | Progress Note ---
DATE: May 03, 2018 SUBJECTIVE: This is a 67-year-old male with a past medical history of type 2 diabetes, peripheral neuropathy, hypertension, who is postoperative day 3 right transmetatarsal amputation with left wound debridement. He is seen at the bedside this morning resting comfortably. Denies any acute issues overnight. Denies nausea, vomiting, fever, chills, chest pain, or shortness of breath. No pain to bilateral lower extremities. OBJECTIVE VITAL SIGNS: Today, temperature is 97.3, heart rate 60, respiratory rate 18, blood pressure 149/72, pulse ox 97% on room air. LOWER EXTREMITY PHYSICAL EXAMINATION VASCULAR: Dorsalis pedis pulses palpable at 2/4. Posterior tibial pulses faintly palpable. Left 4th digit erythema, edema and local acute signs of infection are improving. Capillary refill time to the distal stump site of the right foot is 3-4 seconds. Minimal edema. Negative erythema. Negative ecchymosis. Minimal strike through is noted to the bandage. NEUROLOGICAL: Sensation is absent to bilateral lower extremities. MUSCULOSKELETAL: Right transmetatarsal amputation and left hallux amputation. DERMATOLOGICAL: All sutures are in place and intact. Minimal strike through is noted to the bandage at this point. Negative erythema. Minimal edema. Negative ecchymosis. No local acute signs of infection. Maceration to the central aspect of the incision site is improved today. Left 4th digit superficial ulceration to the distal tip is improving, approximately 0.5 cm x 0.5 cm, and 100% granular with no local acute signs of infection. LABS: White blood cell count is 6.8, hemoglobin 10.3, hematocrit 28.9, and platelet count is 211,000. Sodium 137, potassium 3.8, chloride 107, BUN 18, creatinine 1.2, glucose 111. ASSESSMENT 1. Right foot osteomyelitis: Postoperative day 3, right transmetatarsal amputation of left foot ulcer with improving local acute signs of infection. 2. Type 2 diabetes with peripheral neuropathy. 3. Hypertension. PLAN: The patient was seen and evaluated. Discussed his condition and treatment options with the patient in detail. Dressing was changed today bilateral with Betadine wet-to-dry. Maceration appears to be improving. The patient underwent interventional radiology 2 days ago, which showed 3-vessel runoff with no focal critical stenosis amenable to angioplasty at this time. The patient denied [facility] facility. He is attempting to go to [facility] for postoperative IV antibiotics and local wound care. The podiatry service will continue to monitor as an inpatient. He is stable to be discharged from my standpoint. Job#: [id number] RI
[2018-05-03] MEDS: VANCOMYCIN 750MG/NS 150ML IVPB 150 ML IV SCH ×2 (10:00→20:59)
[2018-05-03] MEDS: FAMOTIDINE 20 MG TAB PO SCH ×2 (11:20→16:30)
[2018-05-04 00:19] VITALS: BP 143/71
[2018-05-04] MEDS: SODIUM CHLORIDE 0.9% 1000ML 1,000 ML IV SCH (00:55)
[2018-05-04 03:41] LABS: BASOPHILS # (AUTO) 0.1 (0.0-0.1); BASOPHILS % 1.2 % (0.0-1.0); EOSINOPHILS # (AUTO) 0.3 (0.0-0.4); EOSINOPHILS % 4.2 % (0.0-6.0); HEMATOCRIT 28.3 % (38.2-49.6); HEMOGLOBIN 10.1 g/dL (14.0-18.0); LYMPHOCYTES # (AUTO) 2.1 (1.0-3.2); LYMPHOCYTES % 31.7 % (18.0-39.1); MEAN CORPUSCULAR HEMOGLOBIN 31.6 pg (28-32); MEAN CORPUSCULAR HGB CONC 35.7 g/dL (31-35); MEAN CORPUSCULAR VOLUME 88.4 fL (81-99); MONOCYTES # (AUTO) 0.6 (0.2-0.8); MONOCYTES % 8.8 % (4.4-11.3); NEUTROPHILS # (AUTO) 3.5 (2.1-6.9); NEUTROPHILS % 53.6 % (38.7-80.0); PLATELET COUNT 206 x10e3/uL (140-360)
[2018-05-04 03:58] LABS: ANION GAP 10.9 mmol/L (8-16); CALCIUM 8.9 mg/dL (8.4-10.2); CREATININE, SERUM 1.22 mg/dL (0.72-1.25); MAGNESIUM 1.5 MG/DL (1.3-2.1); POTASSIUM 3.9 mmol/L (3.5-5.1)
[2018-05-04 04:20] VITALS: BP 152/70
[2018-05-04] MEDS: INSULIN LISPRO 100 UNIT/1 ML 3ML VIAL SQ SCH ×4 (07:30→21:00)
[2018-05-04] MEDS: FAMOTIDINE 20 MG TAB PO SCH ×2 (07:30→16:30)
[2018-05-04 08:00] VITALS: BP 149/73
[2018-05-04] MEDS: VANCOMYCIN 750MG/NS 150ML IVPB 150 ML IV SCH ×2 (09:00→21:32)
[2018-05-04] MEDS: RAMIPRIL 5 MG CAP PO SCH (09:00)
[2018-05-04] MEDS: ENOXAPARIN SOD INJ 40 MG/0.4 ML SYR SC SCH (09:00)
[2018-05-04] MEDS: DOCUSATE SODIUM 100 MG CAP PO SCH ×2 (09:00→17:00)
[2018-05-04 12:00] VITALS: BP 169/87
[2018-05-04 16:00] VITALS: BP 155/66
[2018-05-04 20:04] VITALS: BP 147/76
[2018-05-04] MEDS ORDERED: SODIUM CHLORIDE 0.9% 250ML 250 ML ONE (22:12)
[2018-05-05] VITALS: BP 154/70
[2018-05-05 04:00] VITALS: BP 145/67
[2018-05-05 04:47] LABS: BASOPHILS # (AUTO) 0.1 (0.0-0.1); BASOPHILS % 1.2 % (0.0-1.0); EOSINOPHILS # (AUTO) 0.3 (0.0-0.4); EOSINOPHILS % 4.6 % (0.0-6.0); HEMOGLOBIN 10.3 g/dL (14.0-18.0); LYMPHOCYTES # (AUTO) 2.1 (1.0-3.2); LYMPHOCYTES % 29.4 % (18.0-39.1); MEAN CORPUSCULAR HEMOGLOBIN 31.8 pg (28-32); MEAN CORPUSCULAR HGB CONC 35.5 g/dL (31-35); MEAN CORPUSCULAR VOLUME 89.5 fL (81-99); MONOCYTES # (AUTO) 0.5 (0.2-0.8); MONOCYTES % 7.5 % (4.4-11.3); NEUTROPHILS # (AUTO) 4.1 (2.1-6.9); NEUTROPHILS % 56.9 % (38.7-80.0); PLATELET COUNT 217 x10e3/uL (140-360); RED BLOOD COUNT 3.24 x10e6/uL (4.3-5.7); RED CELL DISTRIBUTION WIDTH 12.2 % (11.7-14.4)
[2018-05-05 05:09] LABS: ANION GAP 10.1 mmol/L (8-16); BLOOD UREA NITROGEN 18 mg/dL (7-26); BUN/CREATININE RATIO 16 (6-25); CALCIUM 9.3 mg/dL (8.4-10.2); CARBON DIOXIDE 23 mmol/L (22-29); CHLORIDE 109 mmol/L (98-107); CREATININE, SERUM 1.14 mg/dL (0.72-1.25); EST GLOMERULAR FILTRATION RATE > 60 ML/MIN (60-); GLUCOSE 140 mg/dL (74-118); MAGNESIUM 1.7 MG/DL (1.3-2.1); POTASSIUM 4.1 mmol/L (3.5-5.1); SODIUM 138 mmol/L (136-145)
[2018-05-05] MEDS: PIPER-TAZ 3.375 GM 50 ML IV SCH ×3 (07:45→20:56)
[2018-05-05 08:00] VITALS: BP 144/79
[2018-05-05] MEDS: VANCOMYCIN 750MG/NS 150ML IVPB 150 ML IV SCH (09:00)
[2018-05-05] MEDS: FAMOTIDINE 20 MG TAB PO SCH ×2 (09:33→16:40)
[2018-05-05] MEDS: RAMIPRIL 5 MG CAP PO SCH (09:33)
[2018-05-05] MEDS: DOCUSATE SODIUM 100 MG CAP PO SCH ×2 (09:33→16:40)
[2018-05-05] MEDS: INSULIN LISPRO 100 UNIT/1 ML 3ML VIAL SQ SCH ×4 (11:12→20:05)
[2018-05-05 12:00] VITALS: BP 153/74
[2018-05-05 16:00] VITALS: BP 138/64
[2018-05-05 20:08] VITALS: BP 148/65
[2018-05-06] VITALS (8 sets, daily range): BP systolic 133–168; BP diastolic 63–74
[2018-05-06] MEDS: PIPER-TAZ 3.375 GM 50 ML IV SCH (04:55)
[2018-05-06 05:22] LABS: BASOPHILS % 0.6 % (0.0-1.0); EOSINOPHILS # (AUTO) 0.3 (0.0-0.4); EOSINOPHILS % 4.6 % (0.0-6.0); HEMATOCRIT 30.5 % (38.2-49.6); HEMOGLOBIN 10.8 g/dL (14.0-18.0); LYMPHOCYTES # (AUTO) 1.1 (1.0-3.2); LYMPHOCYTES % 17.2 % (18.0-39.1); MEAN CORPUSCULAR HEMOGLOBIN 32.2 pg (28-32); MEAN CORPUSCULAR HGB CONC 35.4 g/dL (31-35); MONOCYTES # (AUTO) 0.5 (0.2-0.8); MONOCYTES % 8.2 % (4.4-11.3); NEUTROPHILS # (AUTO) 4.4 (2.1-6.9); NEUTROPHILS % 69.1 % (38.7-80.0); PLATELET COUNT 221 x10e3/uL (140-360); RED BLOOD COUNT 3.35 x10e6/uL (4.3-5.7); RED CELL DISTRIBUTION WIDTH 12.4 % (11.7-14.4)
[2018-05-06 05:34] LABS: CALCIUM 9.2 mg/dL (8.4-10.2); CREATININE, SERUM 1.26 mg/dL (0.72-1.25); MAGNESIUM 1.7 MG/DL (1.3-2.1)
[2018-05-06] MEDS: INSULIN LISPRO 100 UNIT/1 ML 3ML VIAL SQ SCH ×4 (07:30→20:20)
[2018-05-06] MEDS: FAMOTIDINE 20 MG TAB PO SCH ×2 (07:30→17:22)
[2018-05-06] MEDS: RAMIPRIL 5 MG CAP PO SCH (08:50)
[2018-05-06] MEDS: DOCUSATE SODIUM 100 MG CAP PO SCH ×2 (08:50→17:22)
[2018-05-06] MEDS ORDERED: VANCOMYCIN 1GM/NS 250 ML 250 ML IV SCH (09:00)
[2018-05-06] MEDS ORDERED: SODIUM CHLORIDE 0.9% 1000ML 1,000 ML IV ONE (10:00)
[2018-05-06] MEDS: CEFAZOLIN SOD 1 GM VIAL IV SCH ×2 (10:54→17:58)
[2018-05-06] MEDS ORDERED: CEFAZOLIN SOD 1 GM/D5W 50ML 50 ML IV SCH (14:00)
[2018-05-07] VITALS (8 sets, daily range): BP systolic 125–156; BP diastolic 65–76
[2018-05-07] MEDS: CEFAZOLIN SOD 1 GM VIAL IV SCH ×3 (02:10→17:59)
[2018-05-07 05:50] LABS: BASOPHILS # (AUTO) 0.1 (0.0-0.1); BASOPHILS % 0.9 % (0.0-1.0); EOSINOPHILS # (AUTO) 0.4 (0.0-0.4); EOSINOPHILS % 6.9 % (0.0-6.0); HEMATOCRIT 30.5 % (38.2-49.6); HEMOGLOBIN 10.6 g/dL (14.0-18.0); LYMPHOCYTES # (AUTO) 1.1 (1.0-3.2); LYMPHOCYTES % 20.2 % (18.0-39.1); MEAN CORPUSCULAR HEMOGLOBIN 31.6 pg (28-32); MEAN CORPUSCULAR HGB CONC 34.8 g/dL (31-35); MONOCYTES # (AUTO) 0.5 (0.2-0.8); MONOCYTES % 9.7 % (4.4-11.3); NEUTROPHILS # (AUTO) 3.4 (2.1-6.9); NEUTROPHILS % 62.1 % (38.7-80.0); PLATELET COUNT 214 x10e3/uL (140-360); RED BLOOD COUNT 3.35 x10e6/uL (4.3-5.7); RED CELL DISTRIBUTION WIDTH 12.4 % (11.7-14.4)
[2018-05-07 06:24] LABS: CALCIUM 9.2 mg/dL (8.4-10.2); CREATININE, SERUM 1.26 mg/dL (0.72-1.25); MAGNESIUM 1.7 MG/DL (1.3-2.1)
[2018-05-07] MEDS: INSULIN LISPRO 100 UNIT/1 ML 3ML VIAL SQ SCH ×4 (07:30→21:16)
[2018-05-07] MEDS: FAMOTIDINE 20 MG TAB PO SCH ×2 (07:30→16:49)
--- NOTE | 2018-05-07 08:33 | Progress Note ---
DATE: May 07, 2018 SUBJECTIVE: This is a 67-year-old male with a past medical history of type-2 diabetes, peripheral neuropathy, hypertension. He is postoperative week #1 right transmetatarsal amputation with left foot wound debridement. He is seen at bedside this morning resting comfortably. Denies any acute issues overnight. Denies nausea, vomiting, fever, chills, chest pain, or shortness of breath. No pain to bilateral lower extremities. OBJECTIVE: Vital signs today: Temperature is 97.4, heart rate 58, respiratory rate 20, blood pressure 140/69, pulse ox 97% on room air. PROBLEM-FOCUSED LOWER EXTREMITY PHYSICAL EXAMINATION VASCULAR: Dorsalis pedis pulses palpable at 2/4. Posterior tibial pulses faintly palpable. Left 4th digit erythema, edema and warmth are almost completely resolved on this visit. Right foot shows minimal edema, negative erythema, negative warmth. Minimal strikethrough noted to the bandage. Negative ecchymosis. NEUROLOGICAL: Sensation is absent to bilateral lower extremities. DERMATOLOGICAL: Right transmetatarsal amputation and left hallux amputation. All sutures are in place and intact. No strikethrough is noted to the bandage. Negative erythema. Negative ecchymosis. Negative edema. No local acute signs of infection. Left 4th digit superficial ulceration is nearly completely healed on this visit. It is 100% granular. No local acute signs of infection. LABS: White blood cell count is 5.54, hemoglobin 10.6, hematocrit 30.5, and platelet count 214. Sodium 137, potassium 4.0, chloride 107, CO2 24, BUN 20, creatinine 1.26, glucose 155. ASSESSMENT 1. Right foot osteomyelitis. Postoperative week #1 right transmetatarsal amputation. 2. Left foot ulcer improving, nearly resolved. 3. Type-2 diabetes with peripheral neuropathy. 4. Hypertension. PLAN: The patient was seen and evaluated. Discussed his condition and treatment options with the patient in detail. Dressing was changed today bilateral with Betadine wet-to-dry. No local acute signs of infection are present. The patient underwent interventional radiology approximately 6 days ago, which showed 3-vessel runoff with no focal critical stenosis amenable to angioplasty. The patient was denied LTAC or SNF, and the patient was approved for at-home IV antibiotics with home health. Will recommend home health dressing changes to the right foot with Betadine wet-to-dry every other day and antibiotic ointment and a Band-Aid to the left 4th digit. He may follow up at the outpatient office in [place] for followup visit in 1 week. He is stable to be discharged from podiatry standpoint. Job#: [id number]
[2018-05-07] MEDS: RAMIPRIL 5 MG CAP PO SCH (08:54)
[2018-05-07] MEDS: DOCUSATE SODIUM 100 MG CAP PO SCH ×2 (08:54→16:49)
[2018-05-07] MEDS ORDERED: SODIUM CHLORIDE 0.9% 1000ML 1,000 ML IV ONE (09:00)
[2018-05-08 00:33] VITALS: BP 153/70
[2018-05-08] MEDS: CEFAZOLIN SOD 1 GM VIAL IV SCH ×2 (02:08→09:24)
[2018-05-08 05:16] LABS: BASOPHILS # (AUTO) 0.1 (0.0-0.1); BASOPHILS % 0.9 % (0.0-1.0); EOSINOPHILS # (AUTO) 0.3 (0.0-0.4); EOSINOPHILS % 5.8 % (0.0-6.0); HEMATOCRIT 29.9 % (38.2-49.6); HEMOGLOBIN 10.5 g/dL (14.0-18.0); LYMPHOCYTES # (AUTO) 1.8 (1.0-3.2); MEAN CORPUSCULAR HEMOGLOBIN 31.9 pg (28-32); MEAN CORPUSCULAR HGB CONC 35.1 g/dL (31-35); MEAN CORPUSCULAR VOLUME 90.9 fL (81-99); MONOCYTES # (AUTO) 0.7 (0.2-0.8); MONOCYTES % 12.6 % (4.4-11.3); NEUTROPHILS # (AUTO) 2.8 (2.1-6.9); NEUTROPHILS % 48.3 % (38.7-80.0); PLATELET COUNT 212 x10e3/uL (140-360); RED BLOOD COUNT 3.29 x10e6/uL (4.3-5.7); RED CELL DISTRIBUTION WIDTH 12.4 % (11.7-14.4)
[2018-05-08 05:34] LABS: ANION GAP 14.2 mmol/L (8-16); CALCIUM 9.3 mg/dL (8.4-10.2); CREATININE, SERUM 1.25 mg/dL (0.72-1.25); MAGNESIUM 1.6 MG/DL (1.3-2.1); POTASSIUM 4.2 mmol/L (3.5-5.1)
[2018-05-08 05:49] VITALS: BP 163/85
[2018-05-08 08:00] VITALS: BP 134/64
[2018-05-08] MEDS: INSULIN LISPRO 100 UNIT/1 ML 3ML VIAL SQ SCH ×2 (08:00→12:15)
--- NOTE | 2018-05-08 08:20 | Progress Note ---
DATE: May 08, 2018 SUBJECTIVE: This is a 67-year-old male with a past medical history of type-2 diabetes, peripheral neuropathy, hypertension. He is postoperative day #8 right transmetatarsal amputation with left foot wound debridement. He is seen at bedside this morning resting comfortably. Denies any acute issues overnight. Denies nausea, vomiting, fever, chills, chest pain, or shortness of breath. No other pedal complaints. OBJECTIVE: Vital signs today: Temperature is 96.7, heart rate 56, respiratory rate 18, blood pressure 163/85, pulse ox 97% on room air. PROBLEM-FOCUSED LOWER EXTREMITY PHYSICAL EXAMINATION VASCULAR: Dorsalis pedis pulses palpable at 2/4. Posterior tibial pulses are faintly palpable. Erythema, edema and warmth to the left 4th digit are completely resolved on this visit. Dressing was not changed to the right foot. NEUROLOGICAL: Sensation is absent to bilateral lower extremities. DERMATOLOGICAL: Left 4th digit superficial ulceration is nearly completely healed, 100% granular on this visit with no local acute signs of infection. The right foot dressing was not changed on this visit. LABS: White blood cell count is 5.7, hemoglobin 10.5, hematocrit 29.9, and platelet count 212. Sodium 140, potassium 4.2, chloride 108, CO2 22, BUN 21, creatinine 1.25, glucose 184. ASSESSMENT 1. Right foot osteomyelitis. Postoperative day #8 right transmetatarsal amputation. 2. Left foot ulceration. 3. Type-2 diabetes with peripheral neuropathy. 4. Hypertension. PLAN: The patient was seen and evaluated. Discussed his condition and treatment options with the patient in detail. Dressing was not changed today. No local acute signs of infection are present. The patient was denied LTAC or SNF. Case management is currently working on being discharged with home health and IV antibiotics versus IV antibiotics as an outpatient through Dr. Montes De Oca's office. The patient is stable to be discharged today per podiatry, to be followed up in the [place] outpatient office in 1 week. Job#: [id number]
[2018-05-08] MEDS: FAMOTIDINE 20 MG TAB PO SCH (09:24)
[2018-05-08] MEDS: DOCUSATE SODIUM 100 MG CAP PO SCH (09:24)
[2018-05-08] MEDS: RAMIPRIL 5 MG CAP PO SCH (09:24)
[2018-05-08] MEDS ORDERED: RAMIPRIL5 MG PO (09:28)
[2018-05-08] MEDS ORDERED: GLYBURIDE-METF1 EAC1 PO (09:28)
[2018-05-08] MEDS ORDERED: CEFAZOLIN SODIUM1 GM IV (09:28)
[2018-05-08 12:00] VITALS: BP 165/85
--- NOTE | 2018-05-08 17:07 | Discharge Summary ---
ADMITTING DIAGNOSES 1. Right foot osteomyelitis. 2. Hypertension. 3. Type-2 diabetes. 4. Acute kidney injury. 5. Left foot wound. 6. Bradycardia. DISCHARGE DIAGNOSES 1. Right foot osteomyelitis. 2. Hypertension. 3. Type-2 diabetes. 4. Acute kidney injury. 5. Left foot wound. 6. Bradycardia. 7. Status post right transmetatarsal amputation and left foot 4th toe wound debridement. HISTORY: The patient has a history of hypertension and type-2 diabetes, surgical history of right 2nd toe amputation with flap, bilateral great toe amputation, and facial laceration repair. HOSPITAL COURSE: This 67-year-old male complains of right 4th toe swelling and erythema that began 1 month ago when he pulled off the toenail. The swelling and erythema are intermittent, worse when he works too much. Over the last 4 to 5 days prior to admission, the swelling and erythema have worsened, so he came to the ER. He denies fever, nausea, vomiting, and diarrhea. On admission, the patient was started on vancomycin and Zosyn. Podiatry was consulted, and ID consulted. MRI was done that showed OM of the 4th toe mid and distal phalanx and possible OM of proximal phalanx. X-ray showed findings are suspicious for OM of the right 4th digit. Due to the need for long-term antibiotics, the patient had a right PICC line inserted. Arterial Doppler was done that showed probable bilateral lower extremity arterial stenosis. The patient then had an angiogram that showed no focal critical stenosis amenable to angioplasty at this time. No intervention accomplished. Three-vessel runoff below the knee to the feet bilaterally. The patient had a TMA of the right foot on April 30, 2018. The wound at the time of discharge is healing well. Debridement of the left toe was also done, which healed fairly quickly. Wound cultures showed Staphylococcus aureus and Proteus mirabilis. The patient had 2 blood cultures done. One was negative, and one appeared contaminated by ID. Vital signs were stable. The patient was afebrile. We initially attempted to get the patient over to [facility] for long-term antibiotics, but it was out of network. Then the patient decided he wanted to go to [facility] because the information [facility] [employer] goes there, but that was declined by insurance. We then tried to get the patient to [facility], and that was denied. The patient decided to go home with IV antibiotics for 6 more weeks per ID. The patient will be nonweightbearing to the right foot and partial weightbearing to the left foot per podiatry recommendation. He will follow up with primary care and podiatry as outpatient. The patient and agreed to the plan and understand discharge instructions. Vital signs are stable, and the patient is afebrile. Dictated by Vy Franco NP. CHAIM OLIVIER MD Job#: [id number]
== END 2018-05-08 14:19 | disposition home health service (06) | DRG 617 ==
LOC: ER 13:27 → ERHOLD 18:03 → MED/SURG2 22:28
PROVIDERS: ADMIT Internal Medicine; ATTEND Internal Medicine
PROC: 02HV33Z Insertion of Infusion Device into Superior Vena Cava, Percutaneous Approach (ICD-10-PCS; 2018-04-29)
PROC: 0Y6M0ZB Detachment at Right Foot, Partial 2nd Ray, Open Approach (ICD-10-PCS; 2018-04-30)
PROC: 0Y6M0ZC Detachment at Right Foot, Partial 3rd Ray, Open Approach (ICD-10-PCS; 2018-04-30)
PROC: 0Y6M0ZD Detachment at Right Foot, Partial 4th Ray, Open Approach (ICD-10-PCS; 2018-04-30)
PROC: 0Y6M0ZF Detachment at Right Foot, Partial 5th Ray, Open Approach (ICD-10-PCS; 2018-04-30)
PROC: 0JBR0ZZ Excision of Left Foot Subcutaneous Tissue and Fascia, Open Approach (ICD-10-PCS; 2018-04-30)
PROC: B41D1ZZ Fluoroscopy of Aorta and Bilateral Lower Extremity Arteries using Low Osmolar Contrast (ICD-10-PCS; principal; 2018-05-01)
DX: E11.69 Type 2 diabetes mellitus with other specified complication (principal); M86.171 Other acute osteomyelitis, right ankle and foot; N17.9 Acute kidney failure, unspecified; L03.031 Cellulitis of right toe; E11.42 Type 2 diabetes mellitus with diabetic polyneuropathy; I10 Essential (primary) hypertension; Z87.891 Personal history of nicotine dependence; Z89.411 Acquired absence of right great toe; Z89.412 Acquired absence of left great toe; Z89.422 Acquired absence of other left toe(s); R00.1 Bradycardia, unspecified; L97.521 Non-pressure chronic ulcer of other part of left foot limited to breakdown of skin; L97.514 Non-pressure chronic ulcer of other part of right foot with necrosis of bone; B95.61 Methicillin susceptible Staphylococcus aureus infection as the cause of diseases classified elsewhere; B96.4 Proteus (mirabilis) (morganii) as the cause of diseases classified elsewhere
CPT/HCPCS: 36246; 36415; 36569; 71045; 74470; 75716; 80048; 80053; 80202; 82948; 83036; 83605; 83735; 85025; 85610; 85730; 87040; 87071; 87186; 87205; 88305; 88307; 88311; 93925; 96361; 96372; 99284; C1769; J0360; J0690; J1100; J1644; J1650; J2001; J2250; J2405; J2543; J3370; J7030; J7050; Q9967